=== PATIENT | female | born 1970 | race Caucasian/White ===

== ENCOUNTER 2024-11-22 11:53 | Emergency (ER) | payer OTHER ==
[~2024-11-22] VITALS: Ht 167.6 cm; Wt 89.1 kg
[~2024-11-22 11:53] MED LIST: ANTIVERT/2525 MG PO; CYCLOBENZAPRINE10 MG PO; DIAZEPAM10 M1 PO; FLAGYL500 MG PO; MEDROL DOSEPAK4 MG PO; MOTRIN800 MG PO; NAPROSYN500 MG PO; PERMETHRIN60 GM TP; PREDNISONE10 MG PO; PRILOSEC20 M1 PO; PROCARDIA XL30 MG PO; SENOKOT PO; ULTRAM50 MG PO; XANAX1 MG PO; XANAX2 MG PO; ZOCOR10 MG PO
[2024-11-22 12:43] LABS: MEAN CELL VOLUME 114.1 fl (81.0-99.0); MEAN CORPUSCULAR HGB 33.5 pg (27.0-31.0); MEAN PLATELET VOLUME 12.7 fl (9.6-12.3); NUCLEATED RED BLOOD CELL 0.1 10*3/uL (0.0-0.0); NUCLEATED RED BLOOD CELL 0.7 % (0.0-0.0); PLATELET COUNT AUTOMATED 121 10*3/uL (130-400); RED CELL DISTRI WIDTH 18.6 % (0-14.5)
[2024-11-22 12:44] LABS: MANUAL DIFF REFLEX YES
[2024-11-22 12:51] LABS: ABG O2 SATURATION 97.4 % (94.0-98.0); ARTERIAL BLOOD GAS PO2 110.7 mmHg (83.0-108.0)
[2024-11-22 12:59] LABS: ABG BASE EXCESS -14.4 mmol/L (-2.0-3.0); ARTERIAL BLOOD GAS PH 7.177 (7.350-7.450)
[2024-11-22 13:01] LABS: BUN 20 mg/dl (9-23)
[2024-11-22] MEDS ORDERED: SODIUM BICARBONATE 50 MEQ/50 ML VIAL IV ONE ×2 (13:05)
[2024-11-22] MEDS ORDERED: MAGNESIUM SULFATE 50 ML IV ONE (13:05)
[2024-11-22 13:10] LABS: PLATELET SUFFICIENCY LOW (NORMAL)
[2024-11-22] MEDS ORDERED: SODIUM CHLORIDE 0.9% 1,000 ML IV ONE (13:10)
[2024-11-22] MEDS ORDERED: FLUCONAZOLE 100 ML IV ONE (14:00)
[2024-11-22] MEDS ORDERED: NOREPINEPHRINE BITARTRATE/D5W 250 ML IV SCH (14:30)
[2024-11-22] MEDS ORDERED: PROPOFOL 50 ML IV SCH (14:30)
[2024-11-22] MEDS ORDERED: SODIUM CHLORIDE 0.9% 1,000 ML IV SCH (14:35)
[2024-11-22] MEDS ORDERED: PROPOFOL 100 ML IV SCH (14:40)
[2024-11-22] MEDS ORDERED: PROPOFOL 100 ML IV ONE (14:52)
[2024-11-22] MEDS ORDERED: NOREPINEPHRINE BITARTRATE/D5W 250 ML IV ONE (14:52)
[2024-11-22] MEDS ORDERED: IOHEXOL 9 MG/ML (IODINE) ORAL SOLUTION PO ONE (16:00)
[2024-11-22] MEDS ORDERED: IOHEXOL 300 MG/ML 100 ML VIAL IV ONE (16:00)
[2024-11-22 16:10] VITALS: BP 158/53
[2024-11-22] MEDS ORDERED: hydrALAZINE hydrochloride 20 MG/ML VIAL IV ONE (17:30)
[2024-11-22] MEDS ORDERED: HEPARIN SODIUM 250 ML IV ONE (17:54)
[2024-11-22] MEDS ORDERED: SODIUM CHLORIDE 0.9% 100 ML IV ONE (19:41)
[2024-11-22] MEDS ORDERED: Ketamine Hydrochloride 500 MG/10 ML VIAL IV ONE (22:12)
[2024-11-22] MEDS ORDERED: PROPOFOL 200 MG/20 ML VIAL IV ONE (22:12)
== END 2024-11-22 18:52 | disposition short-term general hospital (02) ==
LOC: ED 11:53
PROVIDERS: Nurse Practitioner Family
DX: A41.9 Sepsis, unspecified organism (principal); R65.21 Severe sepsis with septic shock; K66.8 Other specified disorders of peritoneum; J96.00 Acute respiratory failure, unspecified whether with hypoxia or hypercapnia; K63.1 Perforation of intestine (nontraumatic); K55.9 Vascular disorder of intestine, unspecified; E87.20 Acidosis, unspecified; C79.89 Secondary malignant neoplasm of other specified sites; Z79.899 Other long term (current) drug therapy; Z98.51 Tubal ligation status; Z98.890 Other specified postprocedural states